=== PATIENT | male | born 2000 | race Two or more races ===

== ENCOUNTER 2018-08-09 16:24 | Emergency (ER) | payer OTHER ==
[~2018-08-09] VITALS: Ht 185.4 cm; Wt 81.6 kg
[2018-08-09 16:38] VITALS: BP 141/67
[2018-08-09] MEDS ORDERED: NEOMYCIN-BACITRACIN-POLYM 15GM TOP OINT TOP SCH (22:00)
== END 2018-08-09 19:49 | disposition home or self-care (01) ==
LOC: ER 16:24
DX: S80.812A Abrasion, left lower leg, initial encounter (principal); V86.99XA Unspecified occupant of other special all-terrain or other off-road motor vehicle injured in nontraffic accident, initial encounter; Y93.89 Activity, other specified; Y99.8 Other external cause status; Y92.89 Other specified places as the place of occurrence of the external cause
CPT/HCPCS: 73590